=== PATIENT | male | born 1955 | race American Indian/Alaskan Native ===

== ENCOUNTER 2021-05-02 10:04 | Emergency (ER) | payer SELFPAY ==
--- NOTE | 2021-05-02 10:16 | Emergency Department Report ---
HPI - General Time Seen by Provider: 05/02/21 10:11 - HPI HPI: Room 1 The patient is a 65-year-old male presenting in cardiac arrest. The patient was brought in by private vehicle. The patient was found to be unresponsive in the car and was immediately brought back to room 1. Patient was pulseless and apneic with asystole on the monitor. Patient was intubated by myself and ACLS protocols were initiated. Despite several rounds of meds there is no return of spontaneous circulation ED Past Medical Hx - Past Medical History Hx Hypertension: Yes Additional medical history: High cholesterol - Surgical History Past Surgical History?: No - Family History Family history: no significant - Social History Smoking Status: Unknown if ever smoked ED Review of Systems ROS: Stated complaint: CARDIAC ARREST Other details as noted in HPI Comment: Unobtainable due to pts medical conditions Physical Exam - Physical Exam Physical Exam: GENERAL: The patient is well-developed well-nourished male lying on stretcher apneic. [] HEENT: Normocephalic. Atraumatic. NECK: Supple. Trachea midline CHEST/LUNGS: No spontaneous respirations. Breath sounds equal bilaterally with bagging after intubation by myself HEART/CARDIOVASCULAR: No heart sounds. Asystole on monitor ABDOMEN: Abdomen is soft. There is no abdominal distention. SKIN: There is no rash. There is no edema. There is no diaphoresis. NEURO: GCS 3 T MUSCULOSKELETAL: There is no evidence of acute injury. - Intubation Time Out Performed: No Sedative: none Laryngoscope: Gustavo Size: 3 ET Tube Size: 8 Tube Secured Depth (cm): 24 Tube Secured Location: lips Tube Placement Confirmation: visualized tube passing t, equal breath sounds bilat, no breath sounds over epi Patient Tolerated Procedure: no complications Intubation Complications: none ED Medical Decision Making - Differential Diagnosis Cardiac arrest Critical care attestation.: If time is entered above; I have spent that time in minutes in the direct care of this critically ill patient, excluding procedure time. ED Disposition Clinical Impression: Cardiac arrest Disposition: 20 Is pt being admited?: No Does the pt Need Aspirin: No Condition: Poor Time of Disposition: 10:12 (Patient )
--- NOTE | 2021-05-02 14:13 | Event Note ---
Date: 05/02/21 Code blue Central line note CONSENT: The procedure was performed emergently and the permission was implied because of the emergent nature. PROCEDURE SUMMARY: The patient was placed in Trendelenburg position. Right Femoral Vein was identified using the ultrasound. Using real-time out of plane guidance, the introducer needle was inserted into the Internal Jugular vein under direct ultrasound visualization. Venous blood was withdrawn. The syringe was removed and a guidewire was advanced into the introducer needle. The guidewire was vis ualized in the Rt femoral Vein by ultrasound. A small incision was made at the skin surface with a scalpel and the introducer needle was exchanged for a dilator over the guidewire. After appropriate dilation was obtained, the dilator was exchanged over the wire for a 7F central venous catheter. The wire was removed and the catheter was sutured in place. sterile sorbaview shield was placed over the catheter at the insertion site. The patient tolerated the procedure. At time of procedure completion, all ports aspirated and flushed properly. CCT: 25 min
== END 2021-05-02 10:30 ==
LOC: ED 10:04
DX: I46.9 Cardiac arrest, cause unspecified (principal); I10 Essential (primary) hypertension; E78.5 Hyperlipidemia, unspecified
CPT/HCPCS: 31500; 99285